=== PATIENT | female | born 2000 | race Caucasian/White ===

== ENCOUNTER 2021-08-20 08:11 | Emergency (ER) | payer OTHER, SELFPAY ==
--- NOTE | ~2021-08-20 | XR_ITS ---
EXAMINATION: XR CHEST CLINICAL INFORMATION: Cough COMPARISON: None TECHNIQUE: 2 views of the chest were obtained. FINDINGS: No significant abnormality is noted involving the heart, lungs, mediastinum, bony thorax or soft tissues. XR/XR chest 2V IMPRESSION: Unremarkable examination.
[2021-08-20 08:31] VITALS: BP 123/78; PULSE 94; RESP 19; TEMP 36.6; O2SAT 100; BMI 23.9
--- NOTE | 2021-08-20 09:54 | ECG_ITS ---
Test Reason : sob Blood Pressure : / mmHG Vent. Rate : 076 BPM Atrial Rate : 076 BPM P-R Int : 156 ms QRS Dur : 090 ms QT Int : 380 ms P-R-T Axes : 040 084 040 degrees QTc Int : 427 ms Normal sinus rhythm with sinus arrhythmia Normal ECG No previous ECGs available Referred By: Marnie Ortega Electronically Signed By:BERT SPEARS MD
--- NOTE | 2021-08-20 10:37 | ED_ITS ---
HPI - URI/Sore Throat General Chief Complaint: Upper Respiratory Symptoms Stated Complaint: Cough Back Pain Time Seen by Provider: 08/20/21 09:43 Source: patient Mode of arrival: ambulatory History of Present Illness HPI Narrative: 21-year-old female with no significant past medical history presenting to the ED complaining of productive cough x1 month. Reports associated SOB, chest discomfort when coughing and with deep breathing. Soft PCP on and started Augmentin without relief. Does take oral OCPs. Denies fever, pedal e elsie, recent travel, cigarette smoking, sick contacts, calf pain MD elicited complaint: cough Onset (ago): month(s) Related Data Previous Rx's Medication Instructions Recorded benzonatate 100 mg capsule 100 mg PO TID PRN cough #14 caps 08/20/21 fluticasone propionate 50 2 spray intranasal DAILY #16 grams 08/20/21 mcg/actuation nasal spray,suspension (Flonase Allergy Relief) prednisone 20 mg tablet 40 mg PO DAILY 5 days #10 tabs 08/20/21 Allergies Allergy/AdvReac Type Severity Reaction Status Date / Time No Known Allergies Allergy Verified 08/20/21 09:53 Review of Systems Review of Systems: Constitutional: No Weight loss, No Fever, No Chills ENT/Mouth: No Ear Pain, No Nasal Congestion, No sore throat, No Rhinorrhea, No Swallowing Difficulty Cardiovascular: + Chest Pain when coughing, + SOB Respiratory: + Cough, + Sputum, No Wheezing Gastrointestinal: No Nausea, No Vomiting, No Diarrhea, No Constipation, No Abdominal pain Genitourinary: No Dysuria, No Urinary Frequency, No Hematuria, No Flank Pain Musculoskeletal: No joint pain, No Myalgias, No Joint Swelling Skin: No Skin Lesions, No rash Neuro: No Weakness, No Numbness, No Paresthesias Yes all other systems are reviewed and are negative [facility] Past Medical History Attestation statement: The following information was validated with the patient. Social History Social History Advance Directives: No Advance Directives Information Provided: No Physical Exam Vital Signs: Vital Signs: Last Vital Signs Temp 98 F 08/20/21 08:31 Pulse 94 08/20/21 08:31 Resp 19 08/20/21 08:31 BP 123/78 08/20/21 08:31 Pulse Ox 100 07/12/22 08:31 O2 Del Method 08/20/21 08:31 BMI result Body Mass Index 23.9 Const: General: cooperative, healthy appearing and no acute distress Orientation/consciousness: patient oriented x3 Limitations: no limitations HEENT: Head: Yes normal to inspection and Yes atraumatic Ears: hearing grossly normal bilaterally General nose exam: Normal external nose present Face and sinus: Yes normal facial exam Eyes: General: appearance normal, both eyes and all related structures EOM: EOMs intact bilaterally Neck: Neck: Yes normal visual inspection and Yes no meningeal signs Chest: Chest palpation & inspection: normal inspection of the chest, no crepitus and no tenderness Resp: Effort & Inspection: normal respiratory effort and no respiratory distress Auscultation: clear to auscultation bilaterally, no crackles, no rales, no rhonchi and no wheezes Cardio: Rate: regular rate Heart sounds: S1 normal heart sound present and S2 normal heart sound present GI: Inspection: Yes normal to inspection : General: Yes no CVA tenderness Back/Spine/Pelvis: Back: no CVA tenderness Skin: Rashes: no rashes Wounds: no wounds Neuro: General: patient oriented x3, tone normal and no meningeal signs Gait exam (Neuro): Normal gait present Extrem: General: Yes normal to inspection and Yes no pedal edema Course Course Course Narrative: XR chest 2V IMPRESSION: Unremarkable examination. -no leukocytosis. D-dimer negative. Labs otherwise unremarkable -COVID-19 and influenza negative > results discussed with patient including worrisome signs and symptoms and strict return precautions MDM - URI/Sore Throat MDM Narrative Medical decision making narrative: 21-year-old female with no significant past medical history presenting to the ED complaining of productive cough x1 month. On exam mildly tachycardic, NAD, lungs CTA. Concern for bronchitis vs viral syndrome/COVID-19 vs PE. R/o infectious etiology. Symptoms atypical for ACS Plan: EKG, labs, CXR, cough suppressant Differential Diagnosis Differential diagnosis: Likely upper respiratory infection, viral infection and bronchitis Medical Records Attestation: I reviewed the patient's medical records. Lab Data Attestation: I reviewed the patient's lab results. Result diagrams: 08/20/21 10:32 08/20/21 10:32 Labs: Lab Results 08/20/21 08/20/21 08/20/21 Range/Units 10:32 10:32 10:32 WBC 6.1 (4.8-10.8) X10*3/uL RBC 4.05 L (4.20-5.50) X10*6/uL Hgb 11.7 L (12.0-16.0) g/dl Hct 35.2 L (37.0-47.0) % MCV 86.9 (80.0-98.0) fL MCH 28.9 (27.0-33.0) pg MCHC 33.2 (31.0-35.0) g/dl RDW 12.8 (11.0-16.0) % Plt Count 297 (160-400) X10*3/uL MPV 9.7 (9.4-12.3) fL Immature Gran % (Auto) 0.5 H (0.0-0.4) % Neut % (Auto) 46.9 (45-73) % Lymph % (Auto) 37.6 (20-40) % [place] % (Auto) 7.0 (2-11) % Eos % (Auto) 7.8 H (0-4) % Baso % (Auto) 0.2 (0-2) % Lymph # (Auto) 2.3 (1.2-4.9) X10*3/uL [place] # (Auto) 0.4 (0.1-1.2) X10*3/uL Eos # (Auto) 0.5 H (0.0-0.4) X10*3/uL Baso # (Auto) 0.0 (0.0-0.2) X10*3/uL Abs Immat Gran (auto) 0.03 (0.00-0.03) X10*3/uL Absolute Neuts (auto) 2.9 (2.0-8.3) x10*3/uL Absolute Nucleated RBC 0.000 (0.0-0.012) X10*3/uL Nucleated RBC % (auto) 0.0 (0.0-0.2) /100WBC D-Dimer High Sensitivty 160 NG/ML Sodium 137 (135-145) mmol/L Potassium 4.7 (3.3-5.1) mmol/L Chloride 107 (96-108) mmol/L Carbon Dioxide 25 (22-29) mmol/L Anion Gap 10 L (12-20) BUN 8 L (9-16) mg/dL Creatinine 0.72 (0.5-1.4) mg/dL Estim Creat Clear Calc 100.5 Estimated GFR > 60 Random Glucose 95 (60-115) mg/dL Calcium 9.0 (8.4-10.2) mg/dL Total Bilirubin 0.3 (0.0-1.0) mg/dL Direct Bilirubin < 0.2 (0.0-0.5) mg/dL AST 17 (5-31) U/L ALT 17 (0-31) U/L Alkaline Phosphatase 71 (39-117) U/L Troponin I High Sens (<3.5-17.0) ng/L Total Protein 7.3 (6.5-8.0) g/dL Albumin 4.0 (3.5-5.0) g/dL COVID-19 (ELINOR) (Negative) COVID-19 Clin Com Influenza Type A (KATIE) (Negative) Influenza Type B (KATIE) (Negative) Influenza A & B Note 08/20/21 08/20/21 08/20/21 Range/Units 10:32 10:32 10:32 WBC (4.8-10.8) X10*3/uL RBC (4.20-5.50) X10*6/uL Hgb (12.0-16.0) g/dl Hct (37.0-47.0) % MCV (80.0-98.0) fL MCH (27.0-33.0) pg MCHC (31.0-35.0) g/dl RDW (11.0-16.0) % Plt Count (160-400) X10*3/uL MPV (9.4-12.3) fL Immature Gran % (Auto) (0.0-0.4) % Neut % (Auto) (45-73) % Lymph % (Auto) (20-40) % [place] % (Auto) (2-11) % Eos % (Auto) (0-4) % Baso % (Auto) (0-2) % Lymph # (Auto) (1.2-4.9) X10*3/uL [place] # (Auto) (0.1-1.2) X10*3/uL Eos # (Auto) (0.0-0.4) X10*3/uL Baso # (Auto) (0.0-0.2) X10*3/uL Abs Immat Gran (auto) (0.00-0.03) X10*3/uL Absolute Neuts (auto) (2.0-8.3) x10*3/uL Absolute Nucleated RBC (0.0-0.012) X10*3/uL Nucleated RBC % (auto) (0.0-0.2) /100WBC D-Dimer High Sensitivty NG/ML Sodium (135-145) mmol/L Potassium (3.3-5.1) mmol/L Chloride (96-108) mmol/L Carbon Dioxide (22-29) mmol/L Anion Gap (12-20) BUN (9-16) mg/dL Creatinine (0.5-1.4) mg/dL Estim Creat Clear Calc Estimated GFR Random Glucose (60-115) mg/dL Calcium (8.4-10.2) mg/dL Total Bilirubin (0.0-1.0) mg/dL Direct Bilirubin (0.0-0.5) mg/dL AST (5-31) U/L ALT (0-31) U/L Alkaline Phosphatase (39-117) U/L Troponin I High Sens < 3.5 (<3.5-17.0) ng/L Total Protein (6.5-8.0) g/dL Albumin (3.5-5.0) g/dL COVID-19 (ELINOR) Negative (Negative) COVID-19 Clin Com See Note Influenza Type A (KATIE) Negative (Negative) Influenza Type B (KATIE) Negative (Negative) Influenza A & B Note See Note ECG Data Attestation: I personally reviewed and interpreted this ECG as follows: ECG interpretation date: 08/20/21 ECG interpretation time: 10:09 Interpretation: EKG normal sinus rhythm with sinus arrhythmia at a rate of 76. QRS 90. QTC 427. No STEMI Discharge Plan Discharge Clinical Impression: Bronchitis Patient Disposition: Home, Self-Care Instructions: Acute Bronchitis (ED) Additional Instructions: Your blood work and chest x-ray were reassuring. You likely have bronchitis, continue previously prescribed antibiotic. Tessalon Perles for cough, take as needed Prednisone as a steroid Flonase will help clear your sinuses If symptoms persist or worsen, fever, persistent cough, shortness of breath please return to the emergency department Prescriptions: New benzonatate 100 mg capsule 100 mg PO TID PRN (Reason: cough) Qty: 14 0RF fluticasone propionate [Flonase Allergy Relief] 50 mcg/actuation spray,suspension 2 spray intranasal DAILY Qty: 16 0RF Rx Instructions: administer into each nostril prednisone 20 mg tablet 40 mg PO DAILY 5 Days Qty: 10 0RF Referrals: Physician,Unknown J [Primary Care Provider] -
[2021-08-20] MEDS: Benzonatate 100 MG CAPSULE 200 MG PO (10:38)
[2021-08-20] MEDS: HYDROcodone/Homat 5/1.5/5 ML 5 ML SYRUP PO (10:38)
[2021-08-20 10:39] LABS: MANUAL DIFF FLAG NO
[2021-08-20 10:42] LABS: Basophils Percent Auto 0.2 % (0-2); Eosinophils Absolute Auto 0.5 X10*3/uL (0.0-0.4); Eosinophils Percent Auto 7.8 % (0-4); Hematocrit 35.2 % (37.0-47.0); Hemoglobin 11.7 g/dl (12.0-16.0); Imm Gran Abs Auto 0.03 X10*3/uL (0.00-0.03); Imm Gran Pct Auto 0.5 % (0.0-0.4); Lymphocytes Absolute Auto 2.3 X10*3/uL (1.2-4.9); Lymphocytes Percent Auto 37.6 % (20-40); Mean Corpuscular HGB Conc 33.2 g/dl (31.0-35.0); Mean Corpuscular Hemoglobin 28.9 pg (27.0-33.0); Mean Corpuscular Volume 86.9 fL (80.0-98.0); Mean Platelet Volume 9.7 fL (9.4-12.3); Monocytes Absolute Auto 0.4 X10*3/uL (0.1-1.2); Neutrophils Absolute Auto 2.9 x10*3/uL (2.0-8.3); Neutrophils Percent Auto 46.9 % (45-73); Platelet Count 297 X10*3/uL (160-400); Red Blood Count 4.05 X10*6/uL (4.20-5.50); Red Cell Distribution Width 12.8 % (11.0-16.0); White Blood Count 6.1 X10*3/uL (4.8-10.8)
[2021-08-20 10:49] LABS: D Dimer High Sensitivity 160 NG/ML
[2021-08-20 11:02] LABS: Alanine Aminotransferase 17 U/L (0-31); Alkaline Phosphatase 71 U/L (39-117); Anion Gap 10 (12-20); Aspartate Amino Transferase 17 U/L (5-31); Bilirubin Direct < 0.2 mg/dL (0.0-0.5); Bilirubin Total 0.3 mg/dL (0.0-1.0); Blood Urea Nitrogen 8 mg/dL (9-16); Carbon Dioxide 25 mmol/L (22-29); Chloride 107 mmol/L (96-108); Creatinine Clr Calc Pharmacy 100.5; Estimated Glomerular Filt Rate > 60; Glucose Random 95 mg/dL (60-115); Potassium 4.7 mmol/L (3.3-5.1); Sodium 137 mmol/L (135-145); Total Protein 7.3 g/dL (6.5-8.0)
[2021-08-20 11:07] LABS: COVID-19 Test Negative (Negative); Troponin-I High Sensitivity < 3.5 ng/L (<3.5-17.0)
[2021-08-20 11:16] LABS: IDNOW Serial# 08D9AD1C; Influenza A Negative (Negative); Influenza B2 Negative (Negative)
== END 2021-08-20 11:43 | disposition home or self-care (01) ==
PROVIDERS: Physician Assistant; Emergency Provider Emergency Medicine
DX: J40 Bronchitis, not specified as acute or chronic (principal); R05.9 Cough, unspecified; M54.50 Low back pain, unspecified; Z20.822 Contact with and (suspected) exposure to COVID-19; Z79.899 Other long term (current) drug therapy
CPT/HCPCS: 36415; 71046; 80048; 80076; 84484; 85025; 85379; 87502; 87635; 93005; 99283; 99284

== ENCOUNTER 2021-09-11 20:25 | Emergency (ER) | payer OTHER, SELFPAY ==
--- NOTE | ~2021-09-11 | CT_ITS ---
EXAMINATION: CT ABDOMEN AND PELVIS WITHOUT CONTRAST CLINICAL INFORMATION: Right flank pain. COMPARISON: None TECHNIQUE: Multidetector volumetric imaging was performed from the superior aspect of the liver through the pubic symphysis. Sagittal and coronal reformatted images were obtained on the technologist's workstation. This CT examination was performed using dose optimization techniques as appropriate, variously including the following: *Automated exposure control *Adjustment of mA and/or kV according to patient size (this includes techniques or standardized protocols for targeted exams where dose is matched to indication/reason for exam; i.e. extremities or head) *Use of iterative reconstruction technique DLP: 364 mGy-cm FINDINGS: LUNG BASES: The visualized lung bases are unremarkable. LIVER, GALLBLADDER, AND BILIARY TREE: The liver is normal in size, shape, and attenuation. No focal hepatic lesion or biliary ductal dilatation is present. The gallbladder is unremarkable with no evidence of radiopaque gallstones, gallbladder wall thickening, or obvious pericholecystic inflammatory changes. PANCREAS: Unremarkable. SPLEEN: Unremarkable. ADRENAL GLANDS: Unremarkable. KIDNEYS AND URETERS: The kidneys are normal in size, shape, and attenuation. No hydronephrosis, hydroureter, or calculi seen. No perinephric stranding. BLADDER: Unremarkable. GASTROINTESTINAL TRACT: No bowel related abnormalities. Appendectomy. ABDOMINAL WALL: No significant hernia is appreciated. LYMPH NODES: Normal. VASCULAR: Unremarkable. PELVIC VISCERA: Unremarkable. OSSEOUS STRUCTURES: Unremarkable. CT/CT abdomen pelvis wo con IMPRESSION: No urinary calculi or hydronephrosis. Status post appendectomy.
[2021-09-11 20:55] VITALS: BP 114/84; PULSE 67; RESP 18; TEMP 37.2; O2SAT 99; BMI 23.9
[2021-09-11] MEDS: Ondansetron ODT 4 MG TAB.RAPDIS TRANSLINGU (20:58)
[2021-09-11 21:38] LABS: MANUAL DIFF FLAG NO
[2021-09-11 21:41] LABS: Basophils Percent Auto 0.2 % (0-2); Eosinophils Absolute Auto 0.1 X10*3/uL (0.0-0.4); Eosinophils Percent Auto 1.1 % (0-4); Hematocrit 34.3 % (37.0-47.0); Hemoglobin 11.4 g/dl (12.0-16.0); Imm Gran Abs Auto 0.03 X10*3/uL (0.00-0.03); Imm Gran Pct Auto 0.3 % (0.0-0.4); Lymphocytes Absolute Auto 1.8 X10*3/uL (1.2-4.9); Lymphocytes Percent Auto 17.5 % (20-40); Mean Corpuscular HGB Conc 33.2 g/dl (31.0-35.0); Mean Corpuscular Hemoglobin 28.7 pg (27.0-33.0); Mean Corpuscular Volume 86.4 fL (80.0-98.0); Mean Platelet Volume 9.9 fL (9.4-12.3); Monocytes Absolute Auto 0.6 X10*3/uL (0.1-1.2); Monocytes Percent Auto 5.5 % (2-11); Neutrophils Absolute Auto 7.8 x10*3/uL (2.0-8.3); Neutrophils Percent Auto 75.4 % (45-73); Platelet Count 268 X10*3/uL (160-400); Red Blood Count 3.97 X10*6/uL (4.20-5.50); White Blood Count 10.3 X10*3/uL (4.8-10.8)
[2021-09-11 21:50] LABS: Appearance Urine CLOUDY; Color Urine YELLOW; Glucose Urine UA NEG (NEG); Leukocyte Esterase Urine 3+ (NEG); Nitrite Urine POS (NEG); Specific Gravity - Urine >= 1.030 (1.005-1.025); UACC Culture Trigger YES; Urine Blood 3+ (NEG); Urine Ketones NEG (NEG); Urine Protein 1+ MG/DL (NEG-TRACE)
[2021-09-11 21:57] LABS: Alanine Aminotransferase 11 U/L (0-31); Albumin Level 3.9 g/dL (3.5-5.0); Alkaline Phosphatase 63 U/L (39-117); Anion Gap 13 (12-20); Aspartate Amino Transferase 14 U/L (5-31); Bilirubin Total 0.4 mg/dL (0.0-1.0); Blood Urea Nitrogen 10 mg/dL (9-16); Carbon Dioxide 24 mmol/L (22-29); Chloride 105 mmol/L (96-108); Creatinine Clr Calc Pharmacy 89.3; Estimated Glomerular Filt Rate > 60; Glucose Random 115 mg/dL (60-115); Potassium 3.7 mmol/L (3.3-5.1); Sodium 138 mmol/L (135-145)
[2021-09-11 22:06] LABS: Bacteria Urine 2+ /LPF; Mucus Urine 2+ /LPF; Squamous Epithelial Cell Urine 1+ /LPF; WBC Urine 50-75 /HPF (0-4)
[2021-09-12 00:36] VITALS: BP 118/77; PULSE 62; RESP 18; TEMP 36.8; O2SAT 100
--- NOTE | 2021-09-12 00:47 | ED_ITS ---
HPI - Abdominal Pain General Chief Complaint: Abdominal Pain Stated Complaint: lower abd pain and nausea Time Seen by Provider: 09/12/21 00:41 History of Present Illness HPI narrative: Patient is a 21-year-old female presents today with having abdominal pain. It is in the lower abdomen. Sometimes radiates to the right flank area. Patient had positive nausea. Positive increased urination. Positive pain on urination. She is status post appendectomy approximately 4-5 years ago. No other abdominal surgery in the past. No fever no chills. Positive generalized malaise. Patient's last menstrual period is about a week ago timing and duration was normal. Does not think she is . Related Data Previous Rx's Medication Instructions Recorded benzonatate 100 mg capsule 100 mg PO TID PRN cough #14 caps 08/20/21 fluticasone propionate 50 2 spray intranasal DAILY #16 grams 08/20/21 mcg/actuation nasal spray,suspension (Flonase Allergy Relief) prednisone 20 mg tablet 40 mg PO DAILY 5 days #10 tabs 08/20/21 ciprofloxacin HCl 500 mg tablet 500 mg PO BID 7 days #14 tabs 09/12/21 (Cipro) ondansetron 4 mg disintegrating 4 mg PO TID PRN nausea and 09/12/21 tablet vomiting 5 days #10 tabs Allergies Allergy/AdvReac Type Severity Reaction Status Date / Time sulfamethoxazole Allergy Unknown Verified 09/11/21 20:54 [From Bactrim] trimethoprim [From Bactrim] Allergy Unknown Verified 09/11/21 20:54 Review of Systems Review of Systems No fever no chills positive increasing frequency positive flank pain positive nausea Yes all other systems are reviewed and are negative [facility] Past Medical History Attestation statement: The following information was validated with the patient. Social History Social History Advance Directives: No Advance Directives Information Provided: No Physical Exam ED Vital Signs: Vital Signs - 24 hr 09/11/21 20:55 09/12/21 00:36 Temperature 98.9 F 98.3 F Pulse Rate 67 62 Respiratory Rate 18 18 Blood Pressure 114/84 118/77 Pulse Oximetry 99 100 Oxygen Delivery Method Room Air Room Air BMI result Body Mass Index 23.9 Appearance: Alert. Oriented X3. No acute distress. Eyes: Pupils equal, round and reactive to light. ENT: Pharynx normal. Neck: Normal inspection. Neck supple. No lymph nodes noted. No crepitus CVS: Normal heart rate and rhythm. Pulses normal. Normal S1 and S2 Respiratory: No respiratory distress. Breath sounds normal. No Wheezing. No rales Abdomen: Soft and nontender. No rigidity. No distention. good BS x4 Skin: Skin warm and dry. Normal skin color. Normal skin turgor. Extremities: No lower extremity edema. Neurovascular intact to all extremities. No Lacerations. No Rash Neuro: Oriented X 3. No motor deficit. No sensory deficit. Moving all extermities. No slurred speech MDM - Abdominal Pain MDM Narrative Medical decision making narrative: Urine grossly infected. Patient's white count was 10. After given IV fluid antibiotics symptom improved. Will discharge patient home. History of allergies to Bactrim. Will start patient on Cipro. Follow up on an outpatient basis. She is in stable condition. Medical Records Attestation: I reviewed the patient's medical records. Lab Data Attestation: I reviewed the patient's lab results. Result diagrams: 09/11/21 21:33 09/11/21 21:33 Labs: Lab Results 09/11/21 09/11/21 09/11/21 Range/Units 21:33 21:33 21:41 WBC 10.3 (4.8-10.8) X10*3/uL RBC 3.97 L (4.20-5.50) X10*6/uL Hgb 11.4 L (12.0-16.0) g/dl Hct 34.3 L (37.0-47.0) % MCV 86.4 (80.0-98.0) fL MCH 28.7 (27.0-33.0) pg MCHC 33.2 (31.0-35.0) g/dl RDW 13.0 (11.0-16.0) % Plt Count 268 (160-400) X10*3/uL MPV 9.9 (9.4-12.3) fL Immature Gran % (Auto) 0.3 (0.0-0.4) % Neut % (Auto) 75.4 H (45-73) % Lymph % (Auto) 17.5 L (20-40) % [place] % (Auto) 5.5 (2-11) % Eos % (Auto) 1.1 (0-4) % Baso % (Auto) 0.2 (0-2) % Lymph # (Auto) 1.8 (1.2-4.9) X10*3/uL [place] # (Auto) 0.6 (0.1-1.2) X10*3/uL Eos # (Auto) 0.1 (0.0-0.4) X10*3/uL Baso # (Auto) 0.0 (0.0-0.2) X10*3/uL Abs Immat Gran (auto) 0.03 (0.00-0.03) X10*3/uL Absolute Neuts (auto) 7.8 (2.0-8.3) x10*3/uL Absolute Nucleated RBC 0.000 (0.0-0.012) X10*3/uL Nucleated RBC % (auto) 0.0 (0.0-0.2) /100WBC Sodium 138 (135-145) mmol/L Potassium 3.7 D (3.3-5.1) mmol/L Chloride 105 (96-108) mmol/L Carbon Dioxide 24 (22-29) mmol/L Anion Gap 13 (12-20) BUN 10 (9-16) mg/dL Creatinine 0.81 (0.5-1.4) mg/dL Estim Creat Clear Calc 89.3 Estimated GFR > 60 Random Glucose 115 (60-115) mg/dL Calcium 9.0 (8.4-10.2) mg/dL Total Bilirubin 0.4 (0.0-1.0) mg/dL AST 14 (5-31) U/L ALT 11 (0-31) U/L Alkaline Phosphatase 63 (39-117) U/L Total Protein 7.0 (6.5-8.0) g/dL Albumin 3.9 (3.5-5.0) g/dL Urine Color YELLOW Urine Appearance CLOUDY Urine pH 6.0 (5.0-8.0) Ur Specific [place] >= 1.030 H (1.005-1.025) Urine Protein 1+ H (NEG-TRACE) MG/DL Urine Glucose (UA) NEG (NEG) MG/DL Urine Ketones NEG (NEG) MG/DL Urine Blood 3+ H (NEG) Urine Nitrite POS H (NEG) Ur Leukocyte Esterase 3+ H (NEG) Urine RBC 5-9 H (0) /HPF Urine WBC 50-75 H (0-4) /HPF Ur Squamous Epith Cells 1+ /LPF Urine Bacteria 2+ /LPF Urine Mucus 2+ /LPF Urine Test (NEGATIVE) 09/11/21 Range/Units 21:41 WBC (4.8-10.8) X10*3/uL RBC (4.20-5.50) X10*6/uL Hgb (12.0-16.0) g/dl Hct (37.0-47.0) % MCV (80.0-98.0) fL MCH (27.0-33.0) pg MCHC (31.0-35.0) g/dl RDW (11.0-16.0) % Plt Count (160-400) X10*3/uL MPV (9.4-12.3) fL Immature Gran % (Auto) (0.0-0.4) % Neut % (Auto) (45-73) % Lymph % (Auto) (20-40) % [place] % (Auto) (2-11) % Eos % (Auto) (0-4) % Baso % (Auto) (0-2) % Lymph # (Auto) (1.2-4.9) X10*3/uL [place] # (Auto) (0.1-1.2) X10*3/uL Eos # (Auto) (0.0-0.4) X10*3/uL Baso # (Auto) (0.0-0.2) X10*3/uL Abs Immat Gran (auto) (0.00-0.03) X10*3/uL Absolute Neuts (auto) (2.0-8.3) x10*3/uL Absolute Nucleated RBC (0.0-0.012) X10*3/uL Nucleated RBC % (auto) (0.0-0.2) /100WBC Sodium (135-145) mmol/L Potassium (3.3-5.1) mmol/L Chloride (96-108) mmol/L Carbon Dioxide (22-29) mmol/L Anion Gap (12-20) BUN (9-16) mg/dL Creatinine (0.5-1.4) mg/dL Estim Creat Clear Calc Estimated GFR Random Glucose (60-115) mg/dL Calcium (8.4-10.2) mg/dL Total Bilirubin (0.0-1.0) mg/dL AST (5-31) U/L ALT (0-31) U/L Alkaline Phosphatase (39-117) U/L Total Protein (6.5-8.0) g/dL Albumin (3.5-5.0) g/dL Urine Color Urine Appearance Urine pH (5.0-8.0) Ur Specific [place] (1.005-1.025) Urine Protein (NEG-TRACE) MG/DL Urine Glucose (UA) (NEG) MG/DL Urine Ketones (NEG) MG/DL Urine Blood (NEG) Urine Nitrite (NEG) Ur Leukocyte Esterase (NEG) Urine RBC (0) /HPF Urine WBC (0-4) /HPF Ur Squamous Epith Cells /LPF Urine Bacteria /LPF Urine Mucus /LPF Urine Test NEGATIVE (NEGATIVE) Discharge Plan Discharge Clinical Impression: Pyelonephritis Patient Disposition: Home, Self-Care Instructions: Kidney Infection (ED) Prescriptions: New ondansetron 4 mg tablet,disintegrating 4 mg PO TID PRN (Reason: nausea and vomiting) 5 Days Qty: 10 0RF ciprofloxacin HCl [Cipro] 500 mg tablet 500 mg PO BID 7 Days Qty: 14 0RF No Action benzonatate 100 mg capsule 100 mg PO TID PRN (Reason: cough) Qty: 14 0RF fluticasone propionate [Flonase Allergy Relief] 50 mcg/actuation spray,suspension 2 spray intranasal DAILY Qty: 16 0RF Rx Instructions: administer into each nostril prednisone 20 mg tablet 40 mg PO DAILY 5 Days Qty: 10 0RF Referrals: Physician,Unknown J [Primary Care Provider] -
[2021-09-12 00:48] LABS: UPreg QC Valid YES; Urine Pregnancy NEGATIVE (NEGATIVE)
[2021-09-12] MEDS: cefTRIAXone sodium 1 GM in 0.9 % Sodium Chloride 50 ML IV (01:06)
[2021-09-12] MEDS: Ketorolac Tromethamine 30 MG/ML VIAL IVPUSH (01:06)
[2021-09-12] MEDS: ondansetron HCL 4 MG/2 ML VIAL IVPUSH (01:07)
[2021-09-12] MEDS: 0.9 % Sodium Chloride 1,000 ML 999 ML IV (01:07)
== END 2021-09-12 01:50 | disposition home or self-care (01) ==
PROVIDERS: Emergency Provider Emergency Medicine Emergency Medical Services
DX: N12 Tubulo-interstitial nephritis, not specified as acute or chronic (principal); B96.20 Unspecified Escherichia coli [E. coli] as the cause of diseases classified elsewhere
CPT/HCPCS: 36415; 74176; 80053; 81001; 81025; 85025; 87086; 87088; 87186; 96361; 96374; 96375; 99284; 99285; J0696; J1885; J2405

== ENCOUNTER 2021-12-16 08:04 | Emergency (ER) | payer OTHER, SELFPAY ==
[2021-12-16 08:06] VITALS: BP 134/85; PULSE 82; RESP 16; TEMP 36.8; O2SAT 98; BMI 24.3
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
[2021-12-16] MEDS: Cyclobenzaprine HCl 5 MG TABLET PO (09:53)
[2021-12-16] MEDS: Ketorolac Tromethamine 15 MG/ML VIAL IM (09:54)
--- NOTE | 2021-12-16 10:48 | PC.NURSE ---
patient a/ox4 . breathing even and unlabored . went over discharge instructions as ordered by provider . patient to follow up with primary care . patient to return if symptoms worsen . no questions at this time .
== END 2021-12-16 10:53 | disposition home or self-care (01) ==
PROVIDERS: Emergency Provider Emergency Medicine
DX: S13.4XXA Sprain of ligaments of cervical spine, initial encounter (principal); V40.0XXA Car driver injured in collision with pedestrian or animal in nontraffic accident, initial encounter; Y93.89 Activity, other specified; Y92.414 Local residential or business street as the place of occurrence of the external cause; Y99.9 Unspecified external cause status
CPT/HCPCS: 96372; 99284; J1885

== ENCOUNTER 2023-09-14 21:34 | Emergency (ER) | payer OTHER, SELFPAY ==
--- NOTE | ~2023-09-14 | XR_ITS ---
EXAMINATION: XR CHEST CLINICAL INFORMATION: Cough and fever. COMPARISON: 08/20/2021 TECHNIQUE: 2 views of the chest were obtained. FINDINGS: No significant abnormality is noted involving the heart, lungs, mediastinum, bony thorax or soft tissues. XR/XR chest 2V IMPRESSION: Unremarkable examination.
[2023-09-14 22:10] VITALS: BP 123/78; PULSE 104; RESP 18; TEMP 38.4; O2SAT 95; BMI 28.3
[2023-09-14] MEDS: Ibuprofen 600 MG TABLET PO (22:18)
[2023-09-14 22:51] LABS: MANUAL DIFF FLAG NO
[2023-09-14 22:53] LABS: Basophils Percent Auto 0.4 % (0-2); Eosinophils Percent Auto 0.7 % (0-4); Hematocrit 37.3 % (37.0-47.0); Hemoglobin 12.7 g/dl (12.0-16.0); Imm Gran Abs Auto 0.02 X10*3/uL (0.00-0.03); Imm Gran Pct Auto 0.4 % (0.0-0.4); Lymphocytes Absolute Auto 1.2 X10*3/uL (1.2-4.9); Lymphocytes Percent Auto 21.8 % (20-40); Mean Corpuscular Hemoglobin 29.1 pg (27.0-33.0); Mean Corpuscular Volume 85.4 fL (80.0-98.0); Mean Platelet Volume 9.4 fL (9.4-12.3); Monocytes Absolute Auto 0.4 X10*3/uL (0.1-1.2); Neutrophils Absolute Auto 3.8 x10*3/uL (2.0-8.3); Neutrophils Percent Auto 68.7 % (45-73); Platelet Count 229 X10*3/uL (160-400); Red Blood Count 4.37 X10*6/uL (4.20-5.50); Red Cell Distribution Width 12.6 % (11.0-16.0); White Blood Count 5.5 X10*3/uL (4.8-10.8)
[2023-09-14 22:55] LABS: Appearance Urine Cloudy; Color Urine Yellow; Glucose Urine UA Negative (Negative); Leukocyte Esterase Urine Trace (Negative); Nitrite Urine Negative (Negative); PH 5.5 (5.0-9.0); Specific Gravity - Urine 1.025 (1.005-1.025); UMIC TRIGGER UACC YES; UPreg QC Valid YES; Urine Blood Large (3+) (Negative); Urine Ketones Trace mg/dL (Negative); Urine Pregnancy NEGATIVE (NEGATIVE); Urine Protein 30 (1+) mg/dL (Neg-Trace)
[2023-09-14 23:00] LABS: Bacteria Urine 1+ (None Seen); Hyaline Casts Urine 0-2 /LPF (0-2); RBC Urine >20 /HPF (0-2); WBC Urine 0-5 /HPF (0-5)
--- NOTE | 2023-09-14 23:03 | PC.NURSE ---
Pt ca&ox4, no signs of distress. Pt reports 3/10 bodyaches, fever, cough, nausea x 3 days. 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 Plan of care ongoing.
[2023-09-14 23:07] LABS: Anion Gap 14 (12-20); Blood Urea Nitrogen 11 mg/dL (9-16); Calcium 9.4 mg/dL (8.4-10.2); Carbon Dioxide 22 mmol/L (22-29); Chloride 101 mmol/L (96-108); Estimated Glomerular Filt Rate > 60; Glucose Random 106 mg/dL (60-115); Potassium 3.8 mmol/L (3.3-5.1); Sodium 133 mmol/L (135-145)
[2023-09-14 23:28] LABS: Influenza A PCR NEGATIVE (Negative); Influenza B PCR NEGATIVE (Negative); Resp Syncy Virus RNA Qual PCR NEGATIVE (Negative); SARS COV2 PCR INHOUSE NEGATIVE (Negative)
--- NOTE | 2023-09-14 23:49 | PC.NURSE ---
Pt requested and given food and drink Family at bedside. Plan of care ongoing
--- NOTE | 2023-09-15 01:25 | ED.FEVER ---
HPI - Fever General Chief Complaint: Fever Stated Complaint: fever & chills Time Seen by Provider: 09/14/23 22:46 History of Present Illness HPI Narrative: Patient is a 23-year-old female presents today with having coughing congestion upper respiratory symptoms generalized malaise when she coughs she has some mild headache. Patient's feel very weak tired. She does not go outside she does have a pet that goes outside. She denies any vaginal discharge denies any pain on urination denies any frequency. She is from home. The fever has been ongoing for 2-3 days. She is not vaccinated for COVID. No travel history. Related Data Previous Rx's ?Medication ?Instructions ?Recorded benzonatate 100 mg capsule 100 mg PO TID PRN cough #14 caps 08/20/21 fluticasone propionate 50 2 spray intranasal DAILY #16 grams 08/20/21 mcg/actuation nasal spray,suspension (Flonase Allergy Relief) prednisone 20 mg tablet 40 mg (2 x 20 mg) PO DAILY 5 days 08/20/21 #10 tabs ciprofloxacin HCl 500 mg tablet 500 mg PO BID 7 days #14 tabs 09/12/21 (Cipro) ondansetron 4 mg disintegrating 4 mg PO TID PRN nausea and 09/12/21 tablet vomiting 5 days #10 tabs cyclobenzaprine 5 mg tablet 5 mg PO TID PRN muscle spasm 7 12/16/21 days #21 tabs doxycycline hyclate 100 mg capsule 100 mg PO BID cough 7 days #14 caps 09/15/23 Allergies Allergy/AdvReac Type Severity Reaction Status Date / Time sulfamethoxazole Allergy Unknown Verified 09/14/23 22:13 [From Bactrim] trimethoprim [From Bactrim] Allergy Unknown Verified 09/14/23 22:13 Review of Systems Review of Systems: Positive coughing . Positive fever Yes all other systems are reviewed and are negative PMFSH Past Medical History Attestation statement: The following information was validated with the patient. Social History Social History Alcohol intake: never Smoked in Last 30 Days: No Use of substances other than those prescribed or required for medical reasons: No Substance Use Type: Marijuana Advance Directives: No Advance Directives Information Provided: No Physical Exam Vital Signs: Vital Signs: Last Vital Signs Temp 101.2 F H 08/05/24 22:10 Pulse 104 H 09/14/23 22:10 Resp 18 09/14/23 22:10 BP 123/78 09/14/23 22:10 Pulse Ox 95 09/14/23 22:10 O2 Del Method Room Air 09/14/23 22:10 BMI result Body Mass Index 28.3 Appearance: Alert. Oriented X3. No acute distress. Eyes: Pupils equal, round and reactive to light. ENT: Pharynx normal. Neck: Normal inspection. Neck supple. No lymph nodes noted. No crepitus CVS: Normal heart rate and rhythm. Pulses normal. Normal S1 and S2 Respiratory: No respiratory distress. Breath sounds normal. No Wheezing. No rales Abdomen: Soft and nontender. No rigidity. No distention. good BS x4 Skin: Skin warm and dry. Normal skin color. Normal skin turgor. Extremities: No lower extremity edema. Neurovascular intact to all extremities. No Lacerations. No Rash Neuro: Oriented X 3. No motor deficit. No sensory deficit. Moving all extermities. No slurred speech Medications Administered Discontinued Medications Generic Name Dose Route Start Last Admin Trade Name Freq PRN Reason Stop Dose Admin Ibuprofen 600 mg 09/14/23 22:14 09/14/23 22:18 Ibuprofen 600 Mg Tablet PO 09/14/23 22:15 600 mg ONCE ONE Administration Medical Decision Making Medical Decision Making [facility] Narrative: Patient well-appearing in no acute distress. White count is normal. Differential is normal. Patient is electrolytes are unremarkable. Urine showed no signs of infection. test negative unlikely related issue. COVID flu RSV were all negative. My interpretation patient's chest x-ray was grossly negative for any acute evidence of infiltrate pneumonia. No pneumothorax. Patient's platelet count is normal. There is no lymphocytosis. Nevertheless will treat patient with doxy for possible bronchitis/early infiltrate/tick-borne illness. Have patient closely follow-up on an outpatient basis. Patient advised to wear sun protection and also to eat prior to take any antibiotics. Currently in stable condition. Differential Diagnosis Differential Diagnoses: The differential diagnosis associated with the presentation includes Bronchitis, early pneumonia, tick-borne illness Admission/Observation Consideration of admission/observation: Escalation of care including admission/observation considered Lab Data [facility] Lab Attestation statement: I reviewed the patient's lab results. 09/14/23 22:36 09/14/23 22:36 Labs: Lab Results 09/14/23 09/14/23 Range/Units 22:32 22:36 WBC 5.5 (4.8-10.8) X10*3/uL RBC 4.37 (4.20-5.50) X10*6/uL Hgb 12.7 (12.0-16.0) g/dl Hct 37.3 (37.0-47.0) % MCV 85.4 (80.0-98.0) fL MCH 29.1 (27.0-33.0) pg MCHC 34.0 (31.0-35.0) g/dl RDW 12.6 (11.0-16.0) % Plt Count 229 (160-400) X10*3/uL MPV 9.4 (9.4-12.3) fL Immature Gran % (Auto) 0.4 (0.0-0.4) % Neut % (Auto) 68.7 (45-73) % Lymph % (Auto) 21.8 (20-40) % Harlan % (Auto) 8.0 (2-11) % Eos % (Auto) 0.7 (0-4) % Baso % (Auto) 0.4 (0-2) % Lymph # (Auto) 1.2 (1.2-4.9) X10*3/uL Harlan # (Auto) 0.4 (0.1-1.2) X10*3/uL Eos # (Auto) 0.0 (0.0-0.4) X10*3/uL Baso # (Auto) 0.0 (0.0-0.2) X10*3/uL Abs Immat Gran (auto) 0.02 (0.00-0.03) X10*3/uL Absolute Neuts (auto) 3.8 (2.0-8.3) x10*3/uL Absolute Nucleated RBC 0.000 (0.0-0.012) X10*3/uL Nucleated RBC % (auto) 0.0 (0.0-0.2) /100WBC Sodium 133 L (135-145) mmol/L Potassium 3.8 (3.3-5.1) mmol/L Chloride 101 (96-108) mmol/L Carbon Dioxide 22 (22-29) mmol/L Anion Gap 14 (12-20) BUN 11 (9-16) mg/dL Creatinine 0.76 (0.5-1.4) mg/dL Estim Creat Clear Calc 108.0 Estimated GFR > 60 Random Glucose 106 (60-115) mg/dL Calcium 9.4 (8.4-10.2) mg/dL Urine Color Yellow Urine Appearance Cloudy Urine pH 5.5 (5.0-9.0) Ur Specific [place] 1.025 (1.005-1.025) Urine Protein 30 (1+) H (Neg-Trace) mg/dL Urine Glucose (UA) Negative (Negative) mg/dL Urine Ketones Trace (Negative) mg/dL Urine Blood Large (3+) H (Negative) Urine Nitrite Negative (Negative) Ur Leukocyte Esterase Trace H (Negative) Urine RBC >20 H (0-2) /HPF Urine WBC 0-5 (0-5) /HPF Ur Squamous Epith Cells 11-20 (0-2) /HPF Urine Bacteria 1+ (None Seen) Hyaline Casts 0-2 (0-2) /LPF Urine Test NEGATIVE (NEGATIVE) Influenza Type A (PCR) NEGATIVE (Negative) Influenza Type B (PCR) NEGATIVE (Negative) RSV RNA Qual (PCR) NEGATIVE (Negative) SARS-CoV-2 RNA (RT-PCR) NEGATIVE (Negative) Independent Interpretation I performed an independent interpretation of an: Plain X-Ray (Chest x-ray grossly negative) Radiology Impression Discussion of test interpretation with radiology: I have reviewed the radiologist's reading. Independent Historian Clinical information obtained from an independent historian. History obtained from or confirmed by: Parent Discharge Plan Discharge Clinical Impression: Bronchitis Patient Disposition: Home, Self-Care Instructions: Acute Bronchitis (ED) Additional Instructions: Keep up hydration. Please eat prior to taking your antibiotics. Please wear sun protection while you are on the antibiotics. Prescriptions: New doxycycline hyclate 100 mg capsule 100 mg PO BID 7 Days Qty: 14 0RF No Action benzonatate 100 mg capsule 100 mg PO TID PRN (Reason: cough) Qty: 14 0RF fluticasone propionate [Flonase Allergy Relief] 50 mcg/actuation spray,suspension 2 spray intranasal DAILY Qty: 16 0RF Rx Instructions: administer into each nostril prednisone 20 mg tablet 40 mg PO DAILY 5 Days Qty: 10 0RF cyclobenzaprine 5 mg tablet 5 mg PO TID PRN (Reason: muscle spasm) 7 Days Qty: 21 0RF ondansetron 4 mg tablet,disintegrating 4 mg PO TID PRN (Reason: nausea and vomiting) 5 Days Qty: 10 0RF ciprofloxacin HCl [Cipro] 500 mg tablet 500 mg PO BID 7 Days Qty: 14 0RF Referrals: Physician,Unknown J [Primary Care Provider] - 09/17/23 Print Language: Romanian
[2023-09-15] MEDS: Acetaminophen 325 MG TABLET 975 MG PO (01:51)
[2023-09-15] MEDS: Doxycycline Monohydrate 100 MG CAPSULE PO (01:52)
[2023-09-15 01:59] VITALS: BP 100/66; PULSE 91; RESP 14; TEMP 37.1; O2SAT 96
[2023-09-16 21:33] LABS: A. Phagocytphilium DNA,RT-PCR NOT DETECTED (NOT DETECTED); Babesia Microti DNA, RT-PCR NOT DETECTED (NOT DETECTED); Borrelia Miyamotoi,DNA RT-PCR NOT DETECTED (NOT DETECTED); E.Chaffeensis DNA RT-PCR NOT DETECTED (NOT DETECTED); Lyme(Borrelia ssp)DNA RT-PCR NOT DETECTED (NOT DETECTED)
== END 2023-09-15 02:01 | disposition home or self-care (01) ==
PROVIDERS: Emergency Provider Emergency Medicine Emergency Medical Services
DX: J40 Bronchitis, not specified as acute or chronic (principal); R50.9 Fever, unspecified; R05.9 Cough, unspecified; Z03.818 Encounter for observation for suspected exposure to other biological agents ruled out; Z79.899 Other long term (current) drug therapy
CPT/HCPCS: 0241U; 36415; 71046; 80048; 81001; 81025; 85025; 87468; 87469; 87478; 87484; 87798; 99283; 99284

== ENCOUNTER 2024-10-07 01:53 | Emergency (ER) | payer OTHER, SELFPAY ==
[2024-10-07 01:57] VITALS: BP 122/67; PULSE 88; RESP 20; TEMP 37.1; O2SAT 96; BMI 34.7
[2024-10-07 02:30] VITALS: BP 111/72; PULSE 88; RESP 16; TEMP 36.9
--- NOTE | 2024-10-07 02:36 | PC.NURSE ---
pt in visible pain, pacing in the room, tearful, SARS swab done, UA order placed.
[2024-10-07 03:17] LABS: Resp Syncy Virus RNA Qual PCR NEGATIVE (Negative); SARS COV2 PCR INHOUSE NEGATIVE (Negative)
--- OUTSIDE RECORDS SUMMARY | 2024-10-07 03:17 | XMS_ITS | Clinical Summary ---
Author Organization [facility] [address] [place] [address] [place] [phone] Phone Care Team Providers Care Ingredient Specialist Name Role Phone Randa Grissom MD Primary Care Prov ider Allergies Active Allergy Reactions Criticality Noted Date Comments Sulfamethoxazole-Trimethop rim 11/09/2008 Other Reaction(s): Rash/Dermatitis Medications docosanoL (ABREVA) 10 % cream APPLY TOPICALLY 5 TIMES A DAY 2 g 1 5 Active FLUoxetine (PROzac) 40 mg capsule Take 1 capsule (40 mg total) by mouth 1 (one) time each day. 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 History of COVID-19 11/12/2021 Iron deficiency 11/30/2014 Dysmenorrhea 06/17/2013 Generalized anxiety disorder 04/16/2009 Syncope 11/29/2006 Overview (02/04/2024): At time normal EKG and labs, EEG normal, MRI normal Thought related to anxiety, once started on prozac, symptoms stopped Anisocoria 07/09/2005 Overview (02/04/2024): r pupil > left; normal brain MRI Estimated Date of Delivery Comme nts Yes 12/19/2024 Encounters Date Type Department Care Team Description 09/27/2024 3:30 PM EDT Office Visit Adult [address] [phone] Eddie Coreas MD Acute bronchitis, unspecified organism (Primary Dx) 09/27/2024 Telephone Adult Medicine [address] [phone] Randa Grissom MD 09/06/2024 12:30 PM EDT Office Visit Adult [address] [phone] Tati Moeller PA Generalized anxiety disorder (Primary Dx); 27 weeks gestation of from Last 3 Months Immunizations Name Administration Dates Next Due DTaP (Infanrix) 6wks to less than 7yo ,11/28/1999,1998,09/19,1998 [id number] (Pentacel) 2mo to less than 5yo 08/16/1999,1998,1998,07/19 HPV, Quadrivalent 12/27/2013,06/22/2013 Hepatitis B Pediatric (Enger ix B; Recombivax HB) to less than 20 yo 1998,1998,1998 IPV Inactivated polio (Ipol) 6wks and older 06/12/2003,05/17/1999,1998,07/19 Influenza Quadravalent, MDCK , 0.5ml, preservative free (Flucelvax) 6mo and older 12/20/2018,12/22/2016 Influenza trivalent, 0.5mL, preservative free (Fluarix; FluLaval; Fluzone) ages 6mo and older (Afluria) 3 years and older 12/27/2013,11/11/2010,09/26/2009,11/09,12/25/2007,11/23/2006,12/13/2005 ,11/13/2004 Influenza, Unspecified 12/22/2016 Influenza, live, intranasal, trivalent (FluMist) 2yo to less than 50yo 11/27/2014 MMR, measles mumps and rubel la Live (Priorix; M-M-R II) 12mo and older 05/26/2002,05/17/1999 Meningococcal MCV4P 11/27/2014,09/26/2009 Tdap Tetanus diptheria acell ular pertussis (Boostrix; Adacel) 7yo and older 08/30/2021,09/26/2009 Varicella live (Varivax) 12m o and older 05/31/2010,05/17/1999 Surgical History Surgery Date Site/Laterality Comments APPENDECTOMY 10/07/13 PROCEDURE: LAPAROSCOPIC APPENDECTOMY Medical History Medical History Date Comments Iron deficiency 11/30/2014 DX:Iron deficien cy Dysmenorrhea 06/17/2013 DX:Dysmenorrhea Generalized anxiety disorder 04/16/2009 DX: Generalized anxiety disorder Anisocoria 07/09/2005 DX:Anisocoria; C OMMENT: r pupil > left; normal brain MRI Syncope and collapse 11/29/2006 DX:Syncope and collapse; COMMENT: At time normal EKG and labs, EEG normal, MRI normal Thought related to anxiety, once started on prozac, symptoms stopped Herpes genitalia DX:Herpes genit ximena Elevated liver enzymes DX:Elevat ed liver enzymes UTI (urinary tract infection) DX :UTI (urinary tract infection) History of COVID-19 10/29/2021 DX:History o f COVID-19 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 Family History Medical History Relation Name Comments Asthma Brother 1 Colon cancer Father's side great aunt and uncle over the age 50 Other: anxiety Mother Depression Paternal Grandmother Breast cancer Neg Hx Ovarian cancer Neg Hx Pancreatic cancer Neg Hx Prostate cancer Neg Hx Uterine cancer Neg Hx Relation Name Status Comments Brother 1 Brother 2 Alive asthma Juan Father Alive healthy Figueroa Father's side Mother Alive healthy Michelle Paternal Grandmother Social History Tobacco Use Types Packs/Day Years Used Date Smoking Tobacco: Never Smokeless Tobacco: Never Tobacco Cessation:Counseling Given: Not Answered Alcohol Use Standard Drinks/Week Comments Yes 0 (1 standard drink = 0.6 oz pur e alcohol) Housing Instability Answer Date Recorde d Are you worried that in the next 2 months you may not have stable housing? No 09/06/2024 Food Access & Nutrition Answer Date Rec orded Do you have access to a vari ety of food including fruits and vegetables? Yes 09/06/2024 Health Literacy Answer Date Recorded How often do you need to hav e someone help you when you read instructions, pamphlets, or other written material from your doctor or pharmacy? Never 09/06/2024 Caregiver: How often do you need to have someone help you when you read instructions, pamphlets, or other written material from your doctor or pharmacy? Not on file 09/06/2024 Financial Risk Answer Date Recorded How hard is it for you to pa y for the very basics like food, housing, medical care, and air conditioning / heating? Not very hard 09/06/2024 Transportation Answer Date Recorded Has the lack of transportati on kept you from meetings, work, or from getting things needed for daily living? No Has the lack of transportati on kept you from medical appointments or from getting medications? No 09/06/2024 Social Isolation Answer Date Recorded How often do you feel lonely or isolated from th ose around you? Never 09/06/2024 Food Risk Answer Date Recorded Within the past 12 months we worried whether our food would run out before we got money to buy more. Never true 09/06/2024 Within the past 12 months th e food we bought just didn't last and we didn't have money to get more. Never true 09/06/2024 Dependent Care Answer Date Recorded Do you need help finding or paying for care for your loved ones. For example, child attendant or elderly care for an older adult? No 09/06/2024 Education Answer Date Recorded Do you think completing more education or training, like finishing a GED, going to college, or learning a trade, would be helpful for you? No 09/06/2024 Employment and Income Answer Date Recor ded During the last four weeks, have you been actively looking for work? No 09/06/2024 Living Situation Answer Date Recorded What is your living situation? 0 09/06/2024 Estimated Date of Delivery Comme nts Yes 12/19/2024 Sex and Gender Information Value Date Recorded Sex Assigned at Not on file Legal Sex Female 9:36 PM EST Gender Identity Not on file Sexual Orientation Not on file Obstetrics History Para Term AB IAB SAB Ectopic Multiple Livin g Live Births 1 Date Outcome GA Total Labor Labor/2nd/3rd Weight Sex Type Anes PTL Radha A1 A5 Name Clin Current Summary Episode Dates Number of Fetuses Estimated Date of Delivery 04/18/2024 - Present (10/07/2024) 12/19/2024 (set by Yoli Puri MA on 09/27/2024 based on Alternate BRY Entry) Dating Summary Based On BRY GA Diff Last Menstrual Period on 02/25/2024 (Exact Date) 12/01/2024 +2w4d Alternate BRY Entry 12/19/2024 Working Vitals Pregravid Weight Height TWG (As of 10/07/2024) Pregrav id BMI 1.6 m (63 ) Notes Progress Notes - Clinical [facility] - 04/18/2024 - GA:5w0d 04/18/2024 - 5w0d - Giles Fonseca RN Pt was informed of only delivering at [facility] and 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 List of [facility] providers given and instructions to call and make appt for [facility]. Last Filed Vital Signs Vital Sign Reading Time Taken Comments Blood Pressure 112/64 09/27/2024 3:30 PM EDT Pulse 100 09/27/2024 3:30 PM EDT Temperature 35.8 C (96.5 F) 09/27/2024 3:30 PM EDT Respiratory Rate 16 09/27/2024 3:30 PM EDT Oxygen Saturation 97% 09/27/2024 3:30 PM EDT Inhaled Oxygen Concentration - - Weight 90.7 kg (200 lb) 09/27/2024 3:30 PM EDT Height 161.3 cm (5' 3.5 ) 09/27/2024 3:30 PM EDT Body Mass Index 34.87 09/27/2024 3:30 PM EDT Plan of Treatment Upcoming Encounters Date Type Department Care Team (Late st Contact Info) Description 01/16/2025 10:30 AM EST Office Visit Adult Medicine [facility] [address] [place] [phone] Tati Moeller PA [address] [place] [address] Health Maintenance Due Date Last Done Comments HPV Vaccines (3 - 3-dose series) 03/21/2014 12/27/2013, 06/22/2013 Influenza Vaccine (#1) 2024 9, 12/22/2016, 12/22/2016, Additional history exists Cervical Cancer Screening: Pap Smear 03/24/2025 03/24/2022, 03/24/2022, 03/24/2022 Social Influencers of Health Screening 09/06/2025 09/06/2024 Cholesterol Screening (Lipid Panel) 05/13/2028 05/14/2023 DTaP,Tdap,and Td Vaccines (8 - Td or Tdap) 08/31/2031 08/30/2021, 09/26/2009, 06/12/2003, Additional history exists Hepatitis B Vaccines Completed 1998, 1998, 1998 HIB Vaccines Completed 08/16/1999, 11/09, 1998, Additional history exists IPV Vaccines Completed 06/12/2003, 08/1999, 05/17/1999, Additional history exists Meningococcal ACWY Vaccine Completed 11/27/2014, Hepatitis C Screening Completed 03/15/2020 Gonorrhea/Chlamydia Screening Discontinued 03/24/2022 HIV Screening Completed 05/05/2024 Depression Screening Completed 06/22/2024, 04/22/19 24 COVID-19 Vaccine Discontinued Hepatitis A Vaccines Aged Out No long er eligible based on patient's age to complete this topic Meningococcal B Vaccine Aged Out No l onger eligible based on patient's age to complete this topic Pneumococcal Vaccine: Pediatrics (0 to 5 Years) and At-Risk Patients (6 to 49 Years) Aged Out No longer eligible based on patient's age to complete this topic RSV Immunization Patients Under 20 months Aged Out No longer eligible based on patient's age to complete this topic Procedures Procedure Name Priority Date/Time Associated Diagnosis Comments LIPID PANEL Routine 05/14/2023 DEPRESSION SCREENING Routine 04/22/2023 PAP SMEAR Routine 03/24/2022 GONORRHEA/CHLAMYDIA SCRREENING Routine 03/24/2022 HEPATITIS C SCREENING Routine 03/15/2020 from Last 3 Months or Most Recently Relevant to Health Maintenance Results * Lipid panel (05/14/2023) LDL/HDL Ratio 3 0 - 4 Triglycerides 116 0 - 150 mg/dL Cholesterol 155 0 - 200 mg/dL HDL 50 >=40 mg/dL LDL Cholesterol 82 0 - 100 mg/dL Blood Venous blood specimen / Unknown Historical Provider MD LAB BLOOD ORDERABLES Daniela l Result * Depression Screening (04/22/2023) Depression Screening abstracted Historical Provider MD HEALTH MAINTENANCE Final Result * Gonorrhea/Chlamydia Screening (03/24/2022) Gonorrhea/Chla mydia Screening abstracted Historical Provider MD HEALTH MAINTENANCE Final Result * Pap smear (03/24/2022) 03/24/2022 Narrative HISTORICAL TESTING LAB RESULTING AGENCY - 04/02/2022 10:56 AM EST [id number] THINPREP PAP, IMAGED: ATYPICAL SQUAMOUS CELLS OF UNDETERMINED SIGNIFICANCE (ASCUS) . TORIBIO VANEGAS(ASCP) (CASE SCREENED 03 29 2022) DARREL PAULSON M.D. , PATHOLOGIST (CASE ELECTRONICALLY SIGNED 04 02 2022) RESULT OF APTIMA HIGH RISK HPV ASSAY: HIGH RISK HPV: NEGATIVE (SEROTYPES 16,18,31,33,35,39,45,51,52,56,58,59,66,68) COMPLETED ON 2022-04-02 ADEQUACY: SATISFACTORY ENDOCERVICAL/TRANSFORMATION ZONE COMPONENT PRESENT. SOURCE: THINPREP PAP HPV IF ASCUS, CERVICAL, IMAGED CLINICAL INFORMATION: HPV IF DIAGNOSIS OF ASCUS. HORMONES, PAP HX NEGATIVE, [Z12.4] us Stefanie Alvarado MD LAB CYTOLOGY ORDERABLES Fin al Result HISTORICAL TESTING LAB RESULTING AGENCY * Hepatitis C Screening (03/15/2020) Hepatitis C Screening abstracted Historical Provider HEALTH MAINTENANCE Final Result from Last 3 Months or Most Recently Relevant to Health Maintenance Insurance [facility] [employer] Care Teams Ingredient Specialist Relationship Specialty Start Date End Date Randa Grissom MD [address] [place] [id number] PCP - General Internal Medicine 04/11/24
[2024-10-07 03:25] LABS: Appearance Urine Clear; Glucose Urine UA Negative (Negative); PH 6.0 (5.0-9.0); Specific Gravity - Urine 1.020 (1.005-1.025); UMIC TRIGGER UACC YES
--- NOTE | 2024-10-07 03:41 | ED.GENADULT ---
HPI - General Adult General Chief complaint: Back Pain/Injury Stated complaint: abd/back pain Time Seen by Provider: 10/07/24 03:41 History of Present Illness ED Provider: Mamie LINDSAY narrative: The patient is a 24-year-old female who was approximately 7 months with her 1st . She has been having problems with coughing for the last 3 weeks. She has been seen at her PCP's office. She has also been seen at the [facility] emergency room at [facility]. She has been advised that the cough is not indicative of any acutely dangerous process and that she simply needs to ride it out. The patient has been seen here at our emergency room 3 weeks ago on September 14 for a cough. She had blood work and a chest x-ray at that time that were unremarkable. She was placed on a course of doxycycline. The patient's cough continued despite that. Today the patient got up to use the toilet. While in the toilet she had a bad coughing fit. She felt a ?pop sensation in her right lower chest or flank and this seemed to be associated with severe pain in that location. She was very uncomfortable and came to the emergency room. Breathing is painful but she does not feel particularly short of breath. No pain or swelling in her legs. No new cough. No sputum production. No fever, sweats, chills. No abdominal pain. No nausea or vomiting. Related Data Previous Rx's ?Medication ?Instructions ?Recorded benzonatate 100 mg capsule 100 mg PO TID PRN cough #14 caps 08/20/21 fluticasone propionate 50 2 spray intranasal DAILY #16 grams 08/20/21 mcg/actuation nasal spray,suspension (Flonase Allergy Relief) prednisone 20 mg tablet 40 mg (2 x 20 mg) PO DAILY 5 days 08/20/21 #10 tabs ciprofloxacin HCl 500 mg tablet 500 mg PO BID 7 days #14 tabs 09/12/21 (Cipro) ondansetron 4 mg disintegrating 4 mg PO TID PRN nausea and 09/12/21 tablet vomiting 5 days #10 tabs cyclobenzaprine 5 mg tablet 5 mg PO TID PRN muscle spasm 7 12/16/21 days #21 tabs doxycycline hyclate 100 mg capsule 100 mg PO BID cough 7 days #14 caps 09/15/23 acetaminophen 500 mg capsule 1,000 mg (2 x 500 mg) PO TID PRN 10/07/24 pain #14 caps oxycodone 5 mg tablet 5 mg PO Q6H PRN pain #14 tabs 10/07/24 Allergies Allergy/AdvReac Type Severity Reaction Status Date / Time sulfamethoxazole (From Allergy Unknown Verified 10/07/24 01:59 Bactrim) trimethoprim (From Bactrim) Allergy Unknown Verified 10/07/24 01:59 Review of Systems Review of Systems: Yes all other systems are reviewed and are negative COUNTS INCLUDE 234 BEDS AT THE [facility] Social History Social History Alcohol intake: never Smoked in Last 30 Days: No Substance Use Type: Marijuana Advance Directives: No Advance Directives Information Provided: Yes Patient : Yes Physical Exam ED Vital Signs: Vital Signs - 24 hr 10/07/24 01:57 10/07/24 02:30 10/07/24 04:18 Temperature 98.8 F 98.4 F Pulse Rate 88 88 96 Respiratory Rate 20 16 20 Blood Pressure 122/67 111/72 115/75 Pulse Oximetry 96 100 Oxygen Delivery Method Room Air Room Air 10/07/24 06:18 Temperature 98.2 F Pulse Rate 84 Respiratory Rate 16 Blood Pressure 110/59 L Pulse Oximetry 98 Oxygen Delivery Method Room Air BMI result Body Mass Index 34.7 Const Other: The patient is a 24-year-old female with the an obviously gravid abdomen who was sitting in a chair. She looked uncomfortable and was somewhat tearful. She did not appear in any respiratory distress however. Orientation/consciousness: patient oriented x3 HENMT Other: The face is symmetrical. Mucous membranes moist. Eyes Other: The patient was tearful but the eyes were otherwise unremarkable. Pupils are round equal, conjunctivae are clear, extraocular movements intact. Neck Neck: Yes normal visual inspection, Yes full ROM and Yes no lymphadenopathy Chest Other: The patient has chest wall tenderness in the right who lower chest at the posterior axillary line near the costal margin. Palpation in this region seems to reproduce her pain. There was no crepitus or subcutaneous emphysema. Resp Other: There was no increased work of breathing. The patient seems to have very clear lungs bilaterally. Breath sounds are equal. No adventitious breath sounds. Cardio Rate: regular rate Rhythm: regular rhythm Heart sounds: S1 normal heart sound present and S2 normal heart sound present GI Other: The patient has a gravid abdomen that is soft and nontender. Back/Spine/Pelvis Other: Palpation in the region of the right flank at the lower chest wall near the costal margin seems to reproduce the patient's pain. The patient is very tender in his region. Skin Other: The skin is pale and dry Neuro Other: the patient seems to have some discomfort when she changes positions but otherwise is neurologically intact. General: patient oriented x3, gait normal, tone normal, moves all extremities, no focal motor deficits and CN's II-XI intact bilaterally Extrem Other: There is no calf swelling or tenderness. No asymmetry. No peripheral edema. Medications Administered Discontinued Medications Generic Name Dose Route Start Last Admin Trade Name Freq PRN Reason Stop Dose Admin Acetaminophen 975 mg 10/07/24 03:51 10/07/24 04:44 Acetaminophen 325 Mg Tablet PO 10/07/24 03:52 975 mg ONCE ONE Administration Oxycodone HCl 5 mg 10/07/24 03:51 10/07/24 04:44 Oxycodone Hcl Immed Release 5 Mg Tablet PO 10/07/24 03:52 5 mg ONCE ONE Administration Medical Decision Making Medical Decision Making [facility] Narrative: The patient is a 24-year-old woman who was 7 months with her 1st who has been having trouble with coughing for several weeks. She was seen here 3 weeks ago and prescribed doxycycline. She says she has also been seen at her PCP's office. She has also been seen at the [facility] emergency room for the same cough. Today she had a fit of coughing that seems to have provoked an acute right-sided pain. I suspect that this is an acute musculoskeletal chest wall pain. The pain is primarily located in the right lower chest or flank area. It seems very easily reproducible with palpation and movements seemed to exacerbate the pain exactly. Her breath sounds seem completely equal and otherwise clear. She is afebrile. She has a normal heart rate. She has a normal oxygen saturation on room air. She is not exhibiting any increased work of breathing. There was no sign of DVT. Overall this seems to be a case of acute chest wall pain caused by mechanical active coughing. My suspicion for a more dangerous underlying process is very low. Her viral swab for RSV, COVID, and influenza is negative. I do not think this is a case of an acute pneumonia, a pulmonary embolism, or a pneumothorax. I do not see an indication for additional testing. She was treated for her pain with acetaminophen and oxycodone. The pain seemed to be more bearable. She will be discharged to follow up with her PCP and her OBGYN team. She was given a prescription for oxycodone. She should return if worse. Lab Data Labs: Lab Results 10/07/24 10/07/24 Range/Units 02:34 03:19 Urine Color Yellow Urine Appearance Clear Urine pH 6.0 (5.0-9.0) Ur Specific [place] 1.020 (1.005-1.025) Urine Protein Trace (Neg-Trace) mg/dL Urine Glucose (UA) Negative (Negative) mg/dL Urine Ketones Negative (Negative) mg/dL Urine Blood Small (1+) H (Negative) Urine Nitrite Negative (Negative) Ur Leukocyte Esterase Negative (Negative) Urine RBC 6-10 H (0-2) /HPF Urine WBC 0-5 (0-5) /HPF Ur Squamous Epith Cells 3-5 (0-2) /HPF Urine Bacteria None Seen (None Seen) Hyaline Casts 0-2 (0-2) /LPF Influenza Type A (PCR) NEGATIVE (Negative) Influenza Type B (PCR) NEGATIVE (Negative) RSV RNA Qual (PCR) NEGATIVE (Negative) SARS-CoV-2 RNA (RT-PCR) NEGATIVE (Negative) Discharge Plan Discharge Clinical Impression: Acute chest wall pain, Cough, Patient Disposition: Home, Self-Care Additional Instructions: I think that you must have pulled a muscle in your right flank when you had your coughing this morning. You may take 2 extra-strength acetaminophen together (this makes 1000 mg) as needed for pain. You can do this up to 3 times a day. Additionally I have sent a prescription for oxycodone to your pharmacy which you may use as well if necessary. Please follow up with your OBGYN doctor and your primary care doctor. Call this morning for follow up appointments. Return to the emergency room if significantly worse. Prescriptions: New oxycodone 5 mg tablet 5 mg PO Q6H PRN (Reason: pain) Qty: 14 0RF Rx Instructions: Partial Fill upon patient request. acetaminophen 500 mg capsule 1,000 mg PO TID PRN (Reason: pain) Qty: 14 0RF No Action benzonatate 100 mg capsule 100 mg PO TID PRN (Reason: cough) Qty: 14 0RF fluticasone propionate [Flonase Allergy Relief] 50 mcg/actuation spray,suspension 2 spray intranasal DAILY Qty: 16 0RF Rx Instructions: administer into each nostril prednisone 20 mg tablet 40 mg PO DAILY 5 Days Qty: 10 0RF cyclobenzaprine 5 mg tablet 5 mg PO TID PRN (Reason: muscle spasm) 7 Days Qty: 21 0RF ondansetron 4 mg tablet,disintegrating 4 mg PO TID PRN (Reason: nausea and vomiting) 5 Days Qty: 10 0RF ciprofloxacin HCl [Cipro] 500 mg tablet 500 mg PO BID 7 Days Qty: 14 0RF doxycycline hyclate 100 mg capsule 100 mg PO BID 7 Days Qty: 14 0RF Referrals: [facility] [place] [Outside] [facility] [Outside] Randa Palacios MD [Primary Care Provider, Internal Medicine] Stand Alone Forms: Work/School Release Interventions: ED Discharge Assessment Last Done: 10/07/24 06:18 Discharge Date/Time: 10/07/24 06:20 Print Language: Sami
[2024-10-07 04:18] VITALS: BP 115/75; PULSE 96; RESP 20; O2SAT 100
[2024-10-07] MEDS: oxyCODONE HCl Immed Release 5 MG TABLET PO (04:44)
--- NOTE | 2024-10-07 04:45 | PC.NURSE ---
pt medicated per MAR, family at bedside
[2024-10-07 06:18] VITALS: BP 110/59; PULSE 84; RESP 16; TEMP 36.8; O2SAT 98
== END 2024-10-07 06:20 | disposition home or self-care (01) ==
PROVIDERS: Emergency Provider Emergency Medicine; PCP Internal Medicine
DX: R05.9 Cough, unspecified (principal); R07.89 Other chest pain; Z33.1 Pregnant state, incidental
CPT/HCPCS: 81001; 87637; 99283; 99284